=== PATIENT | female | born 1950 | race Caucasian/White ===

== ENCOUNTER → 2017-08-29 12:34 | Outpatient (CLI) | payer MEDICARE, OTHER, SELFPAY ==
--- NOTE | 2017-08-29 | DI.US.S_ITS ---
PROCEDURE: US THYROID INDICATIONS: NONTOXIC MULTINODULAR GOITER TECHNIQUE: Real-time scanning was performed of the thyroid gland, with image documentation. COMPARISON: [facility], US, THYROID, 09/08/2016, 9:06. FINDINGS: Right: The right thyroid lobe measures 1.4 x 1.9 x 5.5 cm, not significantly changed from the comparison prior study in September of last year. The right thyroid lobe superiorly shows a 5 x 5 by 8mm nodule without change and at the middle third of the right thyroid lobe laterally there is a 5 x 6 by 8mm nodule also not changed in volume. At the medial middle third of the right thyroid lobe a 6 x 6 x 6 mm nodule is present in at the inferior third 85 x 4 x 5 mm nodule also has not increased in size over time. Left: The left thyroid lobe measures 0.9 x 1.0 x 2.9 cm, also not changed from prior study. The left thyroid lobe contains a superior nodule measuring 4 x 4 by 5 mm. It has not appreciably enlarged. Isthmus: The isthmus measures up to 2 mm in thickness. IMPRESSION: No significant change in small bilateral thyroid nodules with reference to the prior study from September. Dictated by: Yury Shepherd M.D. on 08/29/2017 at 17:06 Approved by: Yury Shepherd M.D. on 08/29/2017 at 17:08
== END ==
PROVIDERS: PCP Physician Assistant; Visit Provider Internal Medicine
DX: E04.2 Nontoxic multinodular goiter (principal)
CPT/HCPCS: 76536

== ENCOUNTER → 2018-01-11 10:20 | Outpatient (CLI) | payer MEDICARE, OTHER, SELFPAY ==
--- NOTE | 2018-01-11 | DI.RAD.S_ITS ---
PROCEDURE: XR RIBS RT MIN 3V W CXR 1V INDICATIONS: CHEST PAIN ON BREATHING TECHNIQUE: 2 views of the right ribs were acquired, along with a single view chest. COMPARISON: [facility], , RIBS BILATERAL MIN 3 VIEWS, 01/06/2011, 9:56. [facility], , CHEST 2 VIEW, 12/14/2015, 15:38. FINDINGS: Surgical changes and devices: Cholecystectomy clips are seen. Bones and chest wall: A marker is placed upon the area of clinical concern. Within this region, no displaced rib fracture or other significant rib abnormality can be seen. No rib fractures are seen elsewhere. Age-appropriate bony degenerative changes are seen. No suspicious bony lesions. Overlying soft tissues appear unremarkable. Lungs and pleura: No pleural effusions or pneumothorax. Lungs appear clear, yet prominently hyperexpanded. Mediastinum: Mediastinal contours appear normal. Heart size is normal. IMPRESSION: Degenerative changes, without focal rib abnormalities. Hyperexpanded lungs. Cholecystectomy. Dictated by: Anshu Pacheco M.D. on 01/11/2018 at 11:20 Approved by: Anshu Pacheco M.D. on 01/11/2018 at 11:21
== END ==
PROVIDERS: PCP Physician Assistant; Visit Provider Physician Assistant
DX: R07.1 Chest pain on breathing (principal); Z90.49 Acquired absence of other specified parts of digestive tract
CPT/HCPCS: 71101

== ENCOUNTER → 2018-03-21 12:57 | Outpatient (CLI) | payer MEDICARE, OTHER, SELFPAY ==
--- NOTE | 2018-03-21 | DI.RAD.S_ITS ---
This blank DEXA report has been sent in error by the PACS system. The correct and complete report will be forthcoming in 1-2 days. Thank you for your patience and understanding. Dictated by: Momo Roberts M.D. on 03/21/2018 at 15:14 Approved by: Momo Roberts M.D. on 03/21/2018 at 15:17
== END ==
PROVIDERS: PCP Physician Assistant; Visit Provider Physician Assistant
DX: M81.0 Age-related osteoporosis without current pathological fracture (principal); Z78.0 Asymptomatic menopausal state; Z82.62 Family history of osteoporosis; Z90.722 Acquired absence of ovaries, bilateral
CPT/HCPCS: 77080

== ENCOUNTER → 2018-05-08 09:45 | Outpatient (CLI) | payer MEDICARE, OTHER, SELFPAY ==
--- NOTE | 2018-05-08 | DI.MG.S_ITS ---
BILATERAL DIGITAL SCREENING MAMMOGRAM 3D/2D WITH CAD: 05/08/2018 CLINICAL: Routine screening. Comparison is made to exams dated: 04/27/2017 mammogram, 04/06/2016 mammogram, and 03/31/2015 mammogram - [facility]. The tissue of both breasts is heterogeneously dense. This may lower the sensitivity of mammography. Current study was also evaluated with a Computer Aided Detection (CAD) system. No significant masses, calcifications, or other findings are seen in either breast. There has been no significant interval change. IMPRESSION: NEGATIVE There is no mammographic evidence of malignancy. A 1 year screening mammogram is recommended. This exam was interpreted at Station ID: [id number]. NOTE: For mammograms, a report in lay terms will be sent to the patient. Approximately 15% of breast malignancies will not be visualized mammographically. In the management of a palpable breast mass, a negative mammogram must not discourage biopsy of a clinically suspicious lesion. Electronically Signed By: Denise brice/graham:05/08/2018 11:05:17 letter sent: Normal Exam ACR BI-RADS Category 1: Negative [id number]
== END ==
PROVIDERS: PCP Physician Assistant; Visit Provider Physician Assistant
DX: Z12.31 Encounter for screening mammogram for malignant neoplasm of breast (principal)
CPT/HCPCS: 77063; 77067

== ENCOUNTER → 2018-08-30 12:15 | Outpatient (CLI) | payer MEDICARE, OTHER, SELFPAY ==
--- NOTE | 2018-08-30 | DI.US.S_ITS ---
PROCEDURE: US ARTERIAL DUPLEX LE BI INDICATIONS: PAIN IN LOWER LEGS TECHNIQUE: Color and pulse Doppler interrogation was performed of both lower extremity arterial systems, with image documentation. COMPARISON: None. FINDINGS: Right lower extremity: Common femoral artery: 93 cm/sec, with biphasic flow. Deep femoral artery: 74 cm/sec, with biphasic flow. Proximal superficial femoral artery: 57 cm/sec, with biphasic flow. Mid superficial femoral artery: 57 cm/sec, with biphasic flow. Distal superficial femoral artery: 46 cm/sec, with biphasic flow. Popliteal artery: 52 cm/sec, with biphasic flow. Posterior tibial artery: 41 cm/sec, with biphasic flow. Anterior tibial artery/dorsalis pedis: 48 cm/sec, with biphasic flow. Silveira-scale imaging description: No focal arterial stenosis. No significant calcification. Left lower extremity: Common femoral artery: 69 cm/sec, with biphasic flow. Deep femoral artery: 50 cm/sec, with biphasic flow. Proximal superficial femoral artery: 63 cm/sec, with biphasic flow. Mid superficial femoral artery: 69 cm/sec, with biphasic flow. Distal superficial femoral artery: 65 cm/sec, with biphasic flow. Popliteal artery: 46 cm/sec, with biphasic flow. Posterior tibial artery: 54 cm/sec, with biphasic flow. Anterior tibial artery/dorsalis pedis: 59 cm/sec, with biphasic flow. Silveira-scale imaging description: No focal arterial stenosis or significant calcific plaque. IMPRESSION: 1. No hemodynamically significant arterial stenosis in either lower extremity. Dictated by: Cassie Glez M.D. on 08/30/2018 at 17:01 Approved by: Cassie Glez M.D. on 08/30/2018 at 17:05
--- NOTE | 2018-08-30 | DI.US.S_ITS ---
PROCEDURE: US THYROID INDICATIONS: NONTOXIC MULTINODULAR GOITER TECHNIQUE: Real-time scanning was performed of the thyroid gland, with image documentation. COMPARISON: [facility], US, US THYROID, 08/29/2017, 13:08. FINDINGS: Right: Thyroid lobe measures 5.1 x 1.7 x 1.5 cm, and is mildly heterogeneous in echotexture. Left: Thyroid lobe measures 2.6 x 0.8 x 0.9 cm, and is homogeneous in echotexture. Isthmus: 2 mm thick. Nodule number: 1 Location: Right superior Size: 0.6 x 0.4 x 0.5 cm. previously 0.8 x 0.5 x 0.5 Composition: Solid Echogenicity: Hypoechoic Shape: wider than tall. Margins: Smooth Echogenic foci: Macrocalcifications Total points: 5 ACR TI-RADS category: 4 Nodule number: 2 Location: Right mid/lateral Size: 0.7 x 0.5 x 0.7 cm. previously 0.6 x 0.5 x 0.8 Composition: Solid Echogenicity: Mainly isoechoic Shape: wider than tall. Margins: Smooth Echogenic foci: Punctate Total points: 6 ACR TI-RADS category: 4 Nodule number: 3 Location: Right mid to medial Size: 7 x 0.6 x 0.7 cm. previously 0.6 x 0.6 x 0.6 Composition: Predominately solid with a few tiny cystic components Echogenicity: Minimally hypoechoic Shape: wider than tall. Margins: Smooth Echogenic foci: Punctate Total points: 7 ACR TI-RADS category: 5 Nodule number: 4 Location: Right mid inferior Size: 0.4 x 0.3 x 0.4 cm. previously 0.5 x 0.4 x 0.5 Composition: Predominately solid Echogenicity: Minimally hypoechoic Shape: wider than tall. Margins: Smooth Echogenic foci: Punctate Total points: 7 ACR TI-RADS category: 5 There is a left thyroid nodule which measures 5 mm, no change compared to the prior study. IMPRESSION: 1. Multiple subcentimeter thyroid nodules are stable in size and morphology compared to the prior study. 2. Continued annual followup recommended. ACR TI-RADS definitions and recommendations: TI-RADS 1 (benign): 0 points. FNA not needed. TI-RADS 2 (not suspicious): 2 points. FNA not needed. TI-RADS 3 (mildly suspicious): 3 points. * FNA if 2.5 cm or larger, follow up if 1.5 cm or larger (at 1, 3, and 5 years). TI-RADS 4 (moderately suspicious): 4-6 points. * FNA if 1.5 cm or larger, follow up if 1 cm or larger (at 1, 2, 3, and 5 years). TI-RADS 5 (highly suspicious): 7 points or more. * FNA if 1 cm or larger, follow up if 0.5 cm or larger (every year for 5 years). Dictated by: Cassie Glez M.D. on 08/30/2018 at 16:36 Approved by: Cassie Glez M.D. on 08/30/2018 at 16:45
== END ==
PROVIDERS: PCP Internal Medicine; Visit Provider Internal Medicine
DX: E04.2 Nontoxic multinodular goiter (principal); M79.662 Pain in left lower leg; M79.661 Pain in right lower leg
CPT/HCPCS: 76536; 93925

== ENCOUNTER → 2018-09-11 07:52 | Outpatient (CLI) | payer MEDICARE, OTHER, SELFPAY ==
[2018-09-11 09:45] LABS: BUN Creatinine Ratio 22.2 (6-22); Blood Urea Nitrogen 20 mg/dL (7-17); Calcium 9.6 mg/dL (8.4-10.2); Carbon Dioxide 29 mmol/L (22-32); Chloride 102 mmol/L (98-107); Estimated Glomerular Filt Rate > 60.0 mL/min (>60); Glucose 92 mg/dL (80-110); HEMOLYSIS < 15 (0-50); Potassium 4.8 mmol/L (3.4-5.1); Sodium 138 mmol/L (137-145)
[2018-09-14 10:14] LABS: Aldosterone/Renin Activity Rat 136.4 Ratio (0.9-28.9); Plama Renin, LC/MS/MS 0.11 ng/mL/h (0.25-5.82)
== END ==
PROVIDERS: PCP Internal Medicine; Visit Provider Internal Medicine
DX: I10 Essential (primary) hypertension (principal)
CPT/HCPCS: 36415; 80048; 82088; 84244

== ENCOUNTER → 2018-10-08 10:06 | Outpatient (CLI) | payer MEDICARE, OTHER, SELFPAY ==
[2018-10-08 11:50] LABS: B Type Natriuretic Peptide 106 (<100)
== END ==
PROVIDERS: PCP Internal Medicine; Visit Provider Internal Medicine
DX: I10 Essential (primary) hypertension (principal); R60.9 Edema, unspecified; R06.00 Dyspnea, unspecified
CPT/HCPCS: 36415; 83880

== ENCOUNTER → 2018-11-28 09:56 | Outpatient (CLI) | payer MEDICARE, OTHER, SELFPAY ==
--- NOTE | 2018-11-28 | DI.RAD.S_ITS ---
PROCEDURE: XR CHEST 2V INDICATIONS: Chest pain, unspecified TECHNIQUE: 2 views of the chest were acquired. COMPARISON: [facility], CHEST 2 VIEW, 12/14/2015, 15:38. [facility], CHEST 2 VIEW, 12/18/2011, 15:17. FINDINGS: Surgical changes and devices: None. Lungs and pleura: Lungs are abnormal with marked pulmonary hyperexpansion consistent with COPD. No pneumonia or neoplasm is found.. No pleural effusions or pneumothorax. Mediastinum: Mediastinal contours are normal. Heart size is normal. Bones and chest wall: No suspicious bony abnormalities. Soft tissues appear unremarkable. IMPRESSION: Large lung volumes, COPD is presumed. No pneumonia or neoplasm suspected. Dictated by: Yury Shepherd M.D. on 11/28/2018 at 11:47 Approved by: Yury Shepherd M.D. on 11/28/2018 at 11:48
[2018-11-28 11:03] LABS: Add Manual Diff / Slide Review NO; Basophils Absolute Auto 0 /uL (0-100); Basophils Percent Auto 0.6 % (0-2); Eosinophils Absolute Auto 200 /uL (0-450); Eosinophils Percent Auto 4.4 % (2-4); Hematocrit 42.6 % (36-46); Lymphocytes Absolute Auto 1100 /uL (1100-4500); Mean Corpuscular HGB Conc 35.1 % (30-36); Mean Corpuscular Hemoglobin 30.1 PG (26-34); Mean Corpuscular Volume 85.5 fL (80-100); Monocytes Absolute Auto 400 /uL (0-900); Monocytes Percent Auto 7.3 % (3-14); Neutrophils Absolute Auto 3200 /uL (1500-7000); Neutrophils Percent Auto 65.7 % (50-75); Platelet Count 242 X10^3/uL (150-400); Red Blood Cell Count 4.98 X10^6/uL (4.0-5.2); White Blood Cell Count 4.9 X10^3/uL (4.5-11.0)
[2018-11-28 11:27] LABS: B Type Natriuretic Peptide 127 (<100)
[2018-11-28 11:29] LABS: Alanine Aminotransferase 10 IU/L (9-52); Albumin 3.7 g/dL (3.5-5.0); Albumin Globulin Ratio 1.4 (1.0-2.8); Alkaline Phosphatase 64 U/L (38-126); Aspartate Aminotransferase 18 IU/L (14-36); BUN Creatinine Ratio 21.3 (6-22); Bilirubin Total 0.5 mg/dL (0.2-1.3); Blood Urea Nitrogen 17 mg/dL (7-17); Carbon Dioxide 30 mmol/L (22-32); Chloride 104 mmol/L (98-107); Creatine Kinase 36 U/L (30-135); Estimated Glomerular Filt Rate > 60.0 mL/min (>60); Globulin 2.6 g/dL (1.7-4.1); Glucose 55 mg/dL (80-110); HEMOLYSIS < 15 (0-50); Potassium 5.2 mmol/L (3.4-5.1); Sodium 140 mmol/L (137-145); Total Protein 6.3 g/dL (6.3-8.2)
[2018-11-28 11:34] LABS: C-Reactive Protein Quant < 0.5 mg/dL (<1.0)
[2018-11-28 11:38] LABS: Erythrocyte Sedimentation Rate 3 MM/HR (0-20)
[2018-11-28 11:41] LABS: Troponin I < 0.012 ng/mL (0.01-0.034)
== END ==
PROVIDERS: PCP Internal Medicine; Referring Provider Internal Medicine Cardiovascular Disease; Visit Provider Internal Medicine
DX: I31.3 Pericardial effusion (noninflammatory) (principal); R07.9 Chest pain, unspecified; I10 Essential (primary) hypertension
CPT/HCPCS: 36415; 71046; 80053; 82550; 83880; 84484; 85025; 85651; 86038; 86140

== ENCOUNTER → 2019-05-09 10:57 | Outpatient (CLI) | payer MEDICARE, OTHER, SELFPAY ==
--- NOTE | 2019-05-09 | DI.MG.S_ITS ---
BILATERAL DIGITAL SCREENING MAMMOGRAM 3D/2D WITH CAD: 05/09/2019 CLINICAL: Routine screening. Comparison is made to exams dated: 05/08/2018 mammogram, 04/27/2017 mammogram, and 09/22/2016 mammogram - [facility]. The tissue of both breasts is heterogeneously dense. This may lower the sensitivity of mammography. Current study was also evaluated with a Computer Aided Detection (CAD) system. No significant masses, calcifications, or other findings are seen in either breast. There has been no significant interval change. IMPRESSION: NEGATIVE There is no mammographic evidence of malignancy. A 1 year screening mammogram is recommended. This exam was interpreted at Station ID: [id number]. NOTE: For mammograms, a report in lay terms will be sent to the patient. Approximately 15% of breast malignancies will not be visualized mammographically. In the management of a palpable breast mass, a negative mammogram must not discourage biopsy of a clinically suspicious lesion. Electronically Signed By: Rafa donis/graham:05/09/2019 13:02:30 letter sent: Normal Exam ACR BI-RADS Category 1: Negative [id number]
== END ==
PROVIDERS: PCP Internal Medicine; Visit Provider Internal Medicine
DX: Z12.31 Encounter for screening mammogram for malignant neoplasm of breast (principal)
CPT/HCPCS: 77063; 77067

== ENCOUNTER → 2019-11-24 21:28 | Outpatient (ROUT) | payer MEDICARE, OTHER, SELFPAY ==
[2019-11-24 22:21] LABS: Alanine Aminotransferase 14 IU/L (<35); Albumin 3.8 g/dL (3.5-5.0); Albumin Globulin Ratio 1.5 (1.0-2.8); Alkaline Phosphatase 63 U/L (38-126); Aspartate Aminotransferase 25 IU/L (14-36); BUN Creatinine Ratio 24.7 (6-22); Bilirubin Total 0.6 mg/dL (0.2-1.3); Blood Urea Nitrogen 20 mg/dL (7-17); Calcium 9.5 mg/dL (8.4-10.2); Carbon Dioxide 28 mmol/L (22-32); Chloride 104 mmol/L (98-107); Estimated Glomerular Filt Rate > 60.0 mL/min (>60); Globulin 2.6 g/dL (1.7-4.1); Glucose 90 mg/dL (80-110); HEMOLYSIS < 15 (0-50); Potassium 3.8 mmol/L (3.4-5.1); Sodium 138 mmol/L (137-145); Total Protein 6.4 g/dL (6.3-8.2)
== END ==
PROVIDERS: PCP Internal Medicine; Visit Provider Internal Medicine
DX: I10 Essential (primary) hypertension (principal)
CPT/HCPCS: 80053

== ENCOUNTER 2020-01-05 17:56 | Emergency (ER) | payer MEDICARE, OTHER, SELFPAY ==
[2020-01-05] VITALS (17 sets, daily range): BP systolic 142–210; BP diastolic 80–123; PULSE 55–80; RESP 16–42; TEMP 36.9; O2SAT 97–100; BMI 18.2
--- NOTE | 2020-01-05 18:31 | PC.NURSE ---
Pt states she takes atenolol and lisinopril for HTN, had SBP in the teens until starting q6 month injection of Prolia for bone density, last injection 1st week of November 2019. Noted higher bp after these injections, states HTN is a side effect of this med. Denies JONES or other sx.
--- NOTE | 2020-01-05 18:36 | ED_ITS ---
HPI - General Adult General Chief complaint: Hypertension Stated complaint: High Blood Pressure Evaluation Time Seen by Provider: 01/05/20 18:10 Source: patient Mode of arrival: Ambulatory Limitations: no limitations History of Present Illness HPI narrative: 69-year-old female with a history of high blood pressure. Currently on medications. Managed by her primary provider. Here for evaluation of high blood pressure. Patient states that she also receives injection of a medicine for her osteoporosis which is known to cause hypertension. Her last injection was within the past couple weeks. She states that since that time her blood pressure has been elevated to the point that her primary doctor recently doubled her blood pressure medications. She has been taking them as directed. She states that she takes her blood pressure 3 times day. Several months ago her systolic blood pressures were in the 110's but since that time have been steadily rising to the 120s and most recently has been in the 140s to 150 range. She states that earlier today she was having a pressure in her head. She states this is not unusual when she has elevated blood pressures. She took her blood pressure at home and it was in the 160s/170s range. Right after she took her blood pressure she started having left-sided chest discomfort. This started at approximately 0300 hours this afternoon. At the time of my evaluation she was not having any chest discomfort. She states that went away when she got back to the exam room. She is still having slight pressure in her head. Related Data Home Medications Medication Instructions Recorded Confirmed acetaminophen [Acephen] #0 10/06/16 lisinopril 20 mg PO QDAY #0 10/06/16 naproxen sodium [Aleve] #0 10/06/16 Previous Rx's Medication Instructions Recorded amoxicillin 500 mg PO Q8H 5 Days #0 cap 10/06/16 phenazopyridine [Pyridium] 200 mg PO TID PRN #6 tab 10/06/16 Allergies Allergy/AdvReac Type Severity Reaction Status Date / Time No Known Allergies Allergy Uncoded 07/18/17 13:09 Review of Systems Constitutional Constitutional: Denies fatigue and Denies fever(s) Comments: Pressure in her head Eyes Eyes: Denies change in vision and Denies diplopia ENT Ears, Nose, Mouth, and Throat: Denies vertigo and Denies dizziness Cardiovascular Cardiovascular: Denies dyspnea Comments: Chest pressure Respiratory Respiratory: Denies dyspnea Gastrointestinal Gastrointestinal: Denies abdominal pain, Denies nausea and Denies vomiting Genitourinary Genitourinary: Denies dysuria Genitourinary: Denies dysuria Musculoskeletal Musculoskeletal: Denies arthralgias and Denies myalgias Integumentary/Breasts Skin/Breast: Denies lesions and Denies rash Neurologic Neurologic: Denies behavioral changes, Denies vertigo and Denies dizziness Psychiatric Psychiatric: Denies anxiety and Denies behavioral changes Endocrine Endocrine: Denies fatigue Hematologic/Lymphatic Hematologic/Lymphatic: Denies easy bleeding and Denies easy bruising Allergic/Immunologic Allergic/Immunologic: Denies urticaria Patient History Medical History Hypertension (Acute) Osteoporosis (Acute) Social History Smoking Status: Never smoker Smoking Status: Never smoker alcohol intake frequency: 0-2 drinks per day Substance Use Type: does not use Exam Initial Vital Signs Initial Vital Signs: Vital Signs Pulse Rate 77 01/05/20 18:18 Pulse Oximetry 99 01/05/20 18:18 Const General: cooperative and comfortable Limitations: mental status not altered HENRI Head: normal to inspection and normocephalic Eyes General: appearance normal, both eyes and all related structures Resp Effort & Inspection: normal respiratory effort Auscultation: clear to auscultation bilaterally Cardio Rate: regular rate Rhythm: regular rhythm GI Inspection: non-distended Palpation: soft Skin Lesions: no lesions Rashes: no rashes Neuro General: patient alert and patient awake Cognition: normal cognition Speech: speech normal Extrem General: normal to inspection and capillary refill normal Psych Appearance: grossly normal and well kempt Scores GCS [place] coma scale eye opening: Spontaneous [place] coma scale verbal response: Orientated Keith coma scale motor response: Obey commands Keith coma scale total score: 15 Course Orders Ordered: ED Orders 01/05/20 18:18 EKG-12 Lead Stat 01/05/20 18:42 Complete Blood Count AUTO DIFF Stat Comprehensive Metabolic Panel Stat Lipase Stat NT-proBNP (BNP-Adult 18+) Stat Partial Thromboplastin Time Stat Prothrombin Time INR Stat Troponin & CK Cardiac Panel Stat 01/05/20 21:00 Troponin I Stat Discontinued Medications Hydralazine HCl (Apresoline) 10 mg IV Q6HR PRN PRN Reason: Hypertension Vital Signs Vital signs: Vital Signs - 8 hr 01/05/20 18:18 01/05/20 18:19 01/05/20 18:25 Temperature 98.5 F Pulse Rate 77 80 78 Respiratory Rate 16 Blood Pressure 205/123 H 206/90 H Pulse Oximetry 99 99 99 01/05/20 18:30 01/05/20 18:45 01/05/20 19:00 Temperature Pulse Rate 77 67 62 Respiratory Rate 28 H 35 H 35 H Blood Pressure 210/101 H 163/95 H 153/91 H Pulse Oximetry 99 98 97 01/05/20 19:14 01/05/20 19:15 01/05/20 19:30 Temperature Pulse Rate 63 60 65 Respiratory Rate 25 H 21 33 H Blood Pressure 148/86 H 160/83 H 157/86 H Pulse Oximetry 98 99 100 01/05/20 19:45 01/05/20 20:00 01/05/20 20:15 Temperature Pulse Rate 63 57 L 57 L Respiratory Rate 26 H 22 36 H Blood Pressure 161/90 H 158/84 H 145/85 H Pulse Oximetry 99 99 99 01/05/20 20:30 01/05/20 20:45 01/05/20 21:00 Temperature Pulse Rate 55 L 55 L 55 L Respiratory Rate 42 H 32 H 29 H Blood Pressure 142/80 H 143/86 H 173/85 H Pulse Oximetry 100 99 100 01/05/20 21:15 01/05/20 21:30 Temperature Pulse Rate 58 L 55 L Respiratory Rate 28 H 38 H Blood Pressure 162/85 H 152/86 H Pulse Oximetry 100 99 Medical Decision Making Lab Data Lab results reviewed: Yes I reviewed the patient's lab results. Result diagrams: 01/05/20 18:42 01/05/20 18:42 Labs: Lab Results 01/05/20 01/05/20 01/05/20 Range/Units 18:42 18:42 18:42 WBC 6.7 (4.5-11.0) X10^3/uL RBC 4.91 (4.0-5.2) X10^6/uL Hgb 14.6 (12.0-16.0) g/dL Hct 41.6 (36-46) % MCV 84.8 (80-100) fL MCH 29.8 (26-34) PG MCHC 35.2 (30-36) % RDW 14.2 (11.6-14.8) % Plt Count 243 (150-400) X10^3/uL Neut % (Auto) 73.5 (50-75) % Lymph % (Auto) 16.7 L (25-40) % Bowman % (Auto) 6.3 (3-14) % Eos % (Auto) 3.1 (2-4) % Baso % (Auto) 0.4 (0-2) % Neut # (Auto) 4900 (0057-5008) /uL Lymph # (Auto) 1100 (2694-0585) /uL Bowman # (Auto) 400 (0-900) /uL Eos # (Auto) 200 (0-450) /uL Baso # (Auto) 0 (0-100) /uL PT 11.4 (10.1-12.7) SECONDS INR 1.0 (0.9-1.3) APTT 45 H (26.4-36.2) SECONDS Sodium 140 (137-145) mmol/L Potassium 3.6 (3.4-5.1) mmol/L Chloride 103 (98-107) mmol/L Carbon Dioxide 29 (22-32) mmol/L BUN 18 H (7-17) mg/dL Creatinine 0.76 (0.52-1.04) mg/dL Estimated GFR > 60.0 (>60) mL/min BUN/Creatinine Ratio 23.7 H (6-22) Glucose 122 H (80-110) mg/dL Calcium 9.4 (8.4-10.2) mg/dL Total Bilirubin 0.8 (0.2-1.3) mg/dL AST 22 (14-36) IU/L ALT 17 (<35) IU/L Alkaline Phosphatase 58 (38-126) U/L Total Creatine Kinase 42 (30-135) U/L CK-MB (CK-2) TNP CK-MB (CK-2) Rel Index TNP Troponin I < 0.012 (0.01-0.034) ng/mL NT-Pro-B Natriuret Pep 234 H (<125) pg/mL Total Protein 7.0 (6.3-8.2) g/dL Albumin 4.0 (3.5-5.0) g/dL Globulin 3.0 (1.7-4.1) g/dL Albumin/Globulin Ratio 1.3 (1.0-2.8) Lipase 89 (23-300) U/L 01/05/20 Range/Units 21:00 WBC (4.5-11.0) X10^3/uL RBC (4.0-5.2) X10^6/uL Hgb (12.0-16.0) g/dL Hct (36-46) % MCV (80-100) fL MCH (26-34) PG MCHC (30-36) % RDW (11.6-14.8) % Plt Count (150-400) X10^3/uL Neut % (Auto) (50-75) % Lymph % (Auto) (25-40) % Bowman % (Auto) (3-14) % Eos % (Auto) (2-4) % Baso % (Auto) (0-2) % Neut # (Auto) (7150-5469) /uL Lymph # (Auto) (7879-1241) /uL Bowman # (Auto) (0-900) /uL Eos # (Auto) (0-450) /uL Baso # (Auto) (0-100) /uL PT (10.1-12.7) SECONDS INR (0.9-1.3) APTT (26.4-36.2) SECONDS Sodium (137-145) mmol/L Potassium (3.4-5.1) mmol/L Chloride (98-107) mmol/L Carbon Dioxide (22-32) mmol/L BUN (7-17) mg/dL Creatinine (0.52-1.04) mg/dL Estimated GFR (>60) mL/min BUN/Creatinine Ratio (6-22) Glucose (80-110) mg/dL Calcium (8.4-10.2) mg/dL Total Bilirubin (0.2-1.3) mg/dL AST (14-36) IU/L ALT (<35) IU/L Alkaline Phosphatase (38-126) U/L Total Creatine Kinase (30-135) U/L CK-MB (CK-2) CK-MB (CK-2) Rel Index Troponin I < 0.012 (0.01-0.034) ng/mL NT-Pro-B Natriuret Pep (<125) pg/mL Total Protein (6.3-8.2) g/dL Albumin (3.5-5.0) g/dL Globulin (1.7-4.1) g/dL Albumin/Globulin Ratio (1.0-2.8) Lipase (23-300) U/L ECG Data Attestation: I personally reviewed and interpreted this ECG as follows: Prior ECG tracings: not available for review Interpretation: Sinus rhythm Ventricular rate is 77 LVH Normal QRS Normal QTC Nonspecific ST T wave changes MDM Narrative Medical decision making narrative: Patient's blood pressure improved without intervention here in the ER. Hydralazine was ordered however her blood pressure improved before this medication was administered. Troponins negative x2. Nonfocal neurologic exam. Low suspicion for intracerebral hemorrhage, low marie picion for ACS, no signs of pulmonary edema. I feel we can hold on further workup for now. When patient follow-up with her primary provider. We did discuss taking her blood pressure at home. She expressed understanding and agreement. Discharge Plan Departure Patient Disposition: Home Clinical Impression: Hypertension Discharge Date/Time: 01/05/20 21:56 Instructions: DI for High Blood Pressure Activity Restrictions/Additional Instructions: Recommend you continue all of your medications as directed. Tomorrow contact your primary provider for follow-up. Return to the emergency department for any new or worsening symptoms Prescriptions: No Action acetaminophen [Acephen] 325 MG suppository Qty: 0 RF: 0 lisinopril 20 MG tablet 20 mg PO QDAY Qty: 0 RF: 0 naproxen sodium [Aleve] 220 MG tablet Qty: 0 RF: 0 amoxicillin 500 MG capsule 500 mg PO Q8H 5 Days Qty: 0 RF: 0 phenazopyridine [Pyridium] 200 MG tablet 200 mg PO TID PRNQty: 6 RF: 0 Referrals: Mame Mariano MD [Primary Care Provider] -
[2020-01-05 18:49] LABS: Add Manual Diff / Slide Review NO; Basophils Absolute Auto 0 /uL (0-100); Basophils Percent Auto 0.4 % (0-2); Eosinophils Absolute Auto 200 /uL (0-450); Eosinophils Percent Auto 3.1 % (2-4); Hematocrit 41.6 % (36-46); Hemoglobin 14.6 g/dL (12.0-16.0); Lymphocytes Absolute Auto 1100 /uL (1100-4500); Lymphocytes Percent Auto 16.7 % (25-40); Mean Corpuscular HGB Conc 35.2 % (30-36); Mean Corpuscular Hemoglobin 29.8 PG (26-34); Mean Corpuscular Volume 84.8 fL (80-100); Monocytes Absolute Auto 400 /uL (0-900); Monocytes Percent Auto 6.3 % (3-14); Neutrophils Absolute Auto 4900 /uL (1500-7000); Neutrophils Percent Auto 73.5 % (50-75); Platelet Count 243 X10^3/uL (150-400); Red Blood Cell Count 4.91 X10^6/uL (4.0-5.2); Red Cell Distribution Width 14.2 % (11.6-14.8); White Blood Cell Count 6.7 X10^3/uL (4.5-11.0)
[2020-01-05 18:57] LABS: Prothrombin Time 11.4 SECONDS (10.1-12.7)
[2020-01-05 19:00] LABS: PTT Partial Thromboplastin Tim 45 SECONDS (26.4-36.2)
[2020-01-05 19:01] LABS: Alanine Aminotransferase 17 IU/L (<35); Albumin Globulin Ratio 1.3 (1.0-2.8); Alkaline Phosphatase 58 U/L (38-126); Aspartate Aminotransferase 22 IU/L (14-36); BUN Creatinine Ratio 23.7 (6-22); Bilirubin Total 0.8 mg/dL (0.2-1.3); Blood Urea Nitrogen 18 mg/dL (7-17); Calcium 9.4 mg/dL (8.4-10.2); Carbon Dioxide 29 mmol/L (22-32); Chloride 103 mmol/L (98-107); Creatine Kinase 42 U/L (30-135); Estimated Glomerular Filt Rate > 60.0 mL/min (>60); Glucose 122 mg/dL (80-110); HEMOLYSIS < 15 (0-50); Lipase 89 U/L (23-300); Potassium 3.6 mmol/L (3.4-5.1); Sodium 140 mmol/L (137-145)
[2020-01-05 19:13] LABS: NT-proBNP (BNP-Adult 18+) 234 pg/mL (<125); Troponin I < 0.012 ng/mL (0.01-0.034)
[2020-01-05 21:32] LABS: Troponin I < 0.012 ng/mL (0.01-0.034)
== END 2020-01-05 21:56 | disposition home or self-care (01) ==
PROVIDERS: Emergency Provider Emergency Medicine; PCP Internal Medicine
DX: I10 Essential (primary) hypertension (principal)
CPT/HCPCS: 36415; 80053; 82550; 83690; 83880; 84484; 85025; 85610; 85730; 93005; 99283; 99284

== ENCOUNTER → 2020-02-26 07:58 | Outpatient (CLI) | payer MEDICARE, OTHER, SELFPAY ==
--- NOTE | 2020-02-26 | DI.US.S_ITS ---
PROCEDURE: US THYROID INDICATIONS: NONTOXIC MULTINODULAR GOITER TECHNIQUE: Real-time scanning was performed of the thyroid gland, with image documentation. COMPARISON: [facility], US, US THYROID, 08/30/2018, 12:36. FINDINGS: Right: Thyroid lobe measures 5.8 x 1.6 x 1.7 cm, and is diffusely heterogeneous in echotexture. Left: Thyroid lobe measures 3.5 x 1.0 x 0.8 cm, and is diffusely heterogeneous in echotexture. Isthmus: 2.6 mm thick. Nodule number: 1 Location: Right superior Size: Unchanged 0.7 x 0.5 x 0.4 cm. Composition: Solid Echogenicity: Hypoechoic Shape: wider than tall. Margins: Smooth Echogenic foci: Internal punctate echogenic foci Total points: 7 ACR TI-RADS category: Highly suspicious Nodule number: 2 Location: Right mid Size: Unchanged 0.8 x 0.5 x 0.5 cm. Composition: Predominantly solid Echogenicity: Predominantly isoechoic Shape: wider than tall. Margins: Smooth Echogenic foci: Internal punctate echogenic foci Total points: 6 ACR TI-RADS category: Moderately suspicious Nodule number: 3 Location: Right mid Size: Unchanged 0.7 x 0.7 x 0.6 cm. Composition: Predominantly solid Echogenicity: Hypoechoic Shape: wider than tall. Margins: Smooth Echogenic foci: None Total points: 4 ACR TI-RADS category: Moderately suspicious Nodule number: 4 Location: Right inferior Size: Unchanged 0.5 x 0.5 x 0.4 cm. Composition: Predominantly solid Echogenicity: Hypoechoic Shape: wider than tall. Margins: Smooth Echogenic foci: None Total points: 4 ACR TI-RADS category: Moderately suspicious Nodule number: 5 Location: Left mid Size: Unchanged 0.5 x 0.4 x 0.4 cm. Composition: Predominantly cystic Echogenicity: Hypoechoic Shape: wider than tall. Margins: Smooth Echogenic foci: None Total points: 2 ACR TI-RADS category: Not suspicious IMPRESSION: Stable appearance of bilateral thyroid nodules. Continued follow-up recommended for a subcentimeter nodule within the right superior thyroid lobe. ACR TI-RADS definitions and recommendations: TI-RADS 1 (benign): 0 points. FNA not needed. TI-RADS 2 (not suspicious): 2 points. FNA not needed. TI-RADS 3 (mildly suspicious): 3 points. * FNA if 2.5 cm or larger, follow up if 1.5 cm or larger (at 1, 3, and 5 years). TI-RADS 4 (moderately suspicious): 4-6 points. * FNA if 1.5 cm or larger, follow up if 1 cm or larger (at 1, 2, 3, and 5 years). TI-RADS 5 (highly suspicious): 7 points or more. * FNA if 1 cm or larger, follow up if 0.5 cm or larger (every year for 5 years). Dictated by: Cecil Carty [facility] Interpreted: Denise Malcolm MD on 02/26/2020 at 13:42 Approved by: Denise Malcolm M.D. on 02/26/2020 at 15:38
[2020-02-26 10:35] LABS: Cholesterol 181 mg/dL (140-199); HDL Cholesterol 66 mg/dL (40-60); LDL Cholesterol Calculated 100 mg/dL (<100); Triglycerides 74 mg/dL (35-150)
== END ==
PROVIDERS: PCP Internal Medicine; Referring Provider Internal Medicine; Visit Provider Internal Medicine
DX: E04.2 Nontoxic multinodular goiter (principal); I10 Essential (primary) hypertension
CPT/HCPCS: 36415; 76536; 80061

== ENCOUNTER → 2020-03-25 12:32 | Outpatient (CLI) | payer MEDICARE, OTHER, SELFPAY | PROVIDERS: PCP Internal Medicine; Referring Provider Internal Medicine; Visit Provider Internal Medicine | DX: M81.0 Age-related osteoporosis without current pathological fracture; Z78.0 Asymptomatic menopausal state; Z90.722 Acquired absence of ovaries, bilateral; Z82.62 Family history of osteoporosis | CPT/HCPCS: 77080 ==

== ENCOUNTER → 2020-05-14 14:16 | Outpatient (CLI) | payer MEDICARE, OTHER, SELFPAY ==
--- NOTE | 2020-05-14 | DI.MG.S_ITS ---
BILATERAL DIGITAL SCREENING MAMMOGRAM 3D/2D WITH CAD: 05/14/2020 CLINICAL: Routine screening. Comparison is made to exams dated: 05/09/2019 mammogram, 05/08/2018 mammogram, and 04/27/2017 mammogram - [facility]. The tissue of both breasts is heterogeneously dense. This may lower the sensitivity of mammography. Current study was also evaluated with a Computer Aided Detection (CAD) system. No significant masses, calcifications, or other findings are seen in either breast. There has been no significant interval change. IMPRESSION: NEGATIVE There is no mammographic evidence of malignancy. A 1 year screening mammogram is recommended. This exam was interpreted at Station ID: [id number]. NOTE: For mammograms, a report in lay terms will be sent to the patient. Approximately 15% of breast malignancies will not be visualized mammographically. In the management of a palpable breast mass, a negative mammogram must not discourage biopsy of a clinically suspicious lesion. Electronically Signed By: Prakash ro/graham:05/14/2020 16:33:19 letter sent: Normal Exam ACR BI-RADS Category 1: Negative 3341F
== END ==
PROVIDERS: PCP Internal Medicine; Referring Provider Internal Medicine; Visit Provider Internal Medicine
DX: Z12.31 Encounter for screening mammogram for malignant neoplasm of breast (principal)
CPT/HCPCS: 77063; 77067

== ENCOUNTER → 2020-06-17 08:27 | Outpatient (CLI) | payer MEDICARE, OTHER, SELFPAY ==
[2020-06-21 22:35] LABS: Creatinine, Random Urine 106.5 mg/dL (Not Estab.); Metaneph/ Creatinine Ratio 0.4 (0.0-1.0); Metanephrine, Ur 120 ug/L (Undefined); Normetanephrine, Urine 225 ug/L (Undefined)
[2020-06-21 23:42] LABS: Metanephrine,Plasma 20.8 pg/mL (0.0-88.0)
== END ==
PROVIDERS: PCP Internal Medicine; Referring Provider Internal Medicine; Visit Provider Internal Medicine
DX: I10 Essential (primary) hypertension (principal)
CPT/HCPCS: 36415; 82570; 83835

== ENCOUNTER → 2020-06-19 10:00 | Outpatient (CLI) | payer MEDICARE, OTHER, SELFPAY ==
[2020-06-21 22:35] LABS: Normetanephrine Total 185 ug/24 hr (131-612); Urine, Metanephrine 42 ug/L (Undefined); Urine, Normetanephrine 95 ug/L (Undefined)
== END ==
PROVIDERS: PCP Internal Medicine; Referring Provider Internal Medicine; Visit Provider Internal Medicine
DX: I10 Essential (primary) hypertension (principal)
CPT/HCPCS: 83835

== ENCOUNTER → 2021-05-16 11:35 | Outpatient (CLI) | payer MEDICARE, OTHER, SELFPAY ==
--- NOTE | 2021-05-16 | DI.MG.S_ITS ---
BILATERAL DIGITAL SCREENING MAMMOGRAM 3D/2D WITH CAD: 05/16/2021 CLINICAL: Routine screening. Comparison is made to exams dated: 05/14/2020 mammogram, 05/09/2019 mammogram, and 05/08/2018 mammogram - [facility]. The tissue of both breasts is heterogeneously dense. This may lower the sensitivity of mammography. Current study was also evaluated with a Computer Aided Detection (CAD) system. No significant masses, calcifications, or other findings are seen in either breast. There has been no significant interval change. IMPRESSION: NEGATIVE There is no mammographic evidence of malignancy. A 1 year screening mammogram is recommended. This exam was interpreted at Station ID: [id number]. NOTE: For mammograms, a report in lay terms will be sent to the patient. Approximately 15% of breast malignancies will not be visualized mammographically. In the management of a palpable breast mass, a negative mammogram must not discourage biopsy of a clinically suspicious lesion. Electronically Signed By: Kishore Osorio M.D., jr/graham:05/16/2021 12:13:35 letter sent: Normal Exam ACR BI-RADS Category 1: Negative 3341F
== END ==
PROVIDERS: PCP Internal Medicine; Referring Provider Internal Medicine; Visit Provider Internal Medicine
DX: Z12.31 Encounter for screening mammogram for malignant neoplasm of breast (principal)
CPT/HCPCS: 77063; 77067

== ENCOUNTER 2022-06-05 12:37 | Day surgery (SDC) | payer MEDICARE, OTHER, SELFPAY ==
[2022-06-05] VITALS (7 sets, daily range): BP systolic 77–142; BP diastolic 43–80; PULSE 55–68; RESP 14–20; TEMP 36.6–36.7; O2SAT 96–100; BMI 42.2; BMI 19.1
--- NOTE | 2022-06-05 | PATH_ITS ---
[facility] Accession Number: [id number] No. of containers..01 Tissue . 01 Material submitted: . colon - TRANSVERSE COLON POLYP . 01 Clinical history: . COLONOSCOPY . 01 Diagnosis: Transverse Colon Polyp: Tubular adenoma. MRV 06/08/2022 1235 Local . 01 Electronically signed: . Olvin Hutchison MD, PhD, Pathologist NPI- [id number] . 01 Gross description: . TRANSVERSE COLON POLYP: Received in formalin is 1 fragment(s) of hall, soft tissue measuring 0.2 x 0.1 x 0.1 cm submitted entirely in 1 cassette(s) /CPE 06/06/2022 0924 Local . 01 Pathologist provided ICD-10: D12.3 . 01 CPT . 689434 Specimen Comment: A courtesy copy of this report has been sent to [phone] Performed at: 01 [facility] [address] [place] [address], [place], [place] [id number] MD Rafa Clayton MD Phone: [phone]
--- NOTE | 2022-06-05 13:46 | PM.HP.1 ---
History of Present Illness History of Present Illness Date Patient Seen: 06/05/22 Time Patient Seen: 13:46 Chief complaint: Colonoscopy Narrative: History of prior failed colonoscopy. History of recent positive Cologuard. Patient History Medical History Hypertension Osteoporosis Family & Social History Tobacco & Substance use: Smoking Status Never smoker alcohol intake frequency 0-2 drinks per day Substance Use Type does not use Meds Home Medications and Allergies Home Medications Medication Instructions Recorded Confirmed Type lisinopril 20 mg tablet 10 mg PO QDAY ##0 10/06/16 06/05/22 History amlodipine 5 mg tablet 5 mg PO DAILY 06/05/22 06/05/22 History atenolol 50 mg tablet 50 mg PO DAILY 06/05/22 06/05/22 History rosuvastatin 5 mg sprinkle capsule 5 mg PO DAILY 06/05/22 06/05/22 History Allergies Allergy/AdvReac Type Severity Reaction Status Date / Time No Known Drug Allergies Allergy Verified 06/05/22 13:37 Review of Systems Review of Systems ROS: Yes All systems reviewed with the patient and are negative except as otherwise documented Exam Const General: cooperative HENMT Head: normal to inspection Eyes General: appearance normal, both eyes and all related structures Neck Neck: normal visual inspection Chest Chest: normal inspection of the chest Resp Effort & Inspection: normal respiratory effort Cardio Rate: regular rate GI Inspection: normal to inspection Skin General: no rashes or lesions noted Neuro General: patient alert and patient awake Extrem General: normal to inspection and no pedal edema Psych Appearance: grossly normal Assessment & Plan Assessment & Plan narrative: 72-year-old female with a positive Cologuard. Colonoscopy is pursued today. Time Spent With Patient Critical Care time: I spent a total of [] minutes of critical care time on this patient's care today; this time is exclusive of procedural time.
--- NOTE | 2022-06-05 13:47 | PM.PREOP ---
Pre-operative Note Interval Note History & Physical reviewed/Exam performed by Physician: Yes Changes to H&P: No ASA Class (for procedural sedation): II
[2022-06-05] MEDS: LACTATED RINGERS 1,000 ML 42 ML IV (14:10)
--- NOTE | 2022-06-05 14:57 | PM.OP.COLON ---
Operative Date/Time/Diagnoses Date of procedure: 06/05/22 Time of procedure: 14:58 Pre-op diagnosis: Positive Cologuard Post-op diagnosis: same Procedure & Clinicians Study performed: Colonoscopy with cold forceps polypectomy Same procedure as scheduled: Yes Indications: Positive Cologuard Surgeon: Alphonso Zhang Procedure Notes SCOAP/Timeout: Done Procedure in detail: After the risks and benefits were explained, written and verbal informed consent was obtained. The patient was brought into the procedure room and placed into the left lateral decubitus position. Please see anesthesia notes for sedation details. Digital rectal examination was accomplished. The scope was introduced into the patient and advanced under direct visualization to the cecum as identified by the appendiceal orifice and ileocecal valve. The scope was slowly withdrawn to carefully examine the mucosa for any defects or lesions. Comprehensive imaging was accomplished throughout the rectum including the dentate line. The colon was decompressed, the scope was then removed from the patient who tolerated the procedure well. Pediatric colonoscope Bowel prep adequate Scope withdrawal time: 10 minutes Sedation minutes: 30 Complications: none Impression: The patient had extensive diverticulosis encountered throughout the left colon. This was an extremely tortuous colon. Navigation was very difficult requiring abdominal pressure and supine positioning. There was a diminutive polyp found in the transverse colon removed with cold forceps. No additional mucosal pathology was appreciated throughout. Grade 2 hemorrhoids were noted on direct views. Endoscopic diagnosis 1. Diminutive polyp 2. Tortuous colon 3. Diverticulosis 4. Grade 2 hemorrhoids Post-procedure Plan for aftercare: 1. Await histopathology. 2. Surveillance colonoscopy will not likely be recommended/required. Disposition: PACU
== END 2022-06-05 15:46 | disposition home or self-care (01) ==
PROVIDERS: PCP Internal Medicine; Referring Provider Internal Medicine Gastroenterology; Visit Provider Internal Medicine Gastroenterology
PROC: 0DJD8ZZ Inspection of Lower Intestinal Tract, Via Natural or Artificial Opening Endoscopic (ICD-10-PCS; CPT 45378; principal; 2022-06-05 14:30)
DX: Z12.11 Encounter for screening for malignant neoplasm of colon (principal); R19.5 Other fecal abnormalities; K57.30 Diverticulosis of large intestine without perforation or abscess without bleeding; K64.1 Second degree hemorrhoids; D12.3 Benign neoplasm of transverse colon
CPT/HCPCS: 45380; J2704; J3010

== ENCOUNTER → 2022-06-14 12:34 | Outpatient (CLI) | payer MEDICARE, OTHER, SELFPAY ==
--- NOTE | 2022-06-14 | DI.MG.S_ITS ---
BILATERAL DIGITAL SCREENING MAMMOGRAM 3D/2D WITH CAD: 06/14/2022 CLINICAL: Routine screening. Comparison is made to exams dated: 05/16/2021 mammogram, 05/14/2020 mammogram, 05/09/2019 mammogram, and 05/08/2018 mammogram - [facility]. Both breasts are heterogeneously dense, which may obscure small masses (category c / 51-75% glandular tissue). Current study was also evaluated with a Computer Aided Detection (CAD) system. No significant masses, calcifications, or other findings are seen in either breast. There has been no significant interval change. IMPRESSION: NEGATIVE There is no mammographic evidence of malignancy. A 1 year screening mammogram is recommended. Based on the Tyrer Cuzick model (a risk assessment model) the patient's lifetime risk is 5.9% and her 10 year risk is 5.3%. According to the ACR, ACS, and NCCN guidelines, an annual breast MRI exam along with mammogram is recommended if the patient's lifetime risk is 20% or greater. This exam was interpreted at Station ID: [id number]. NOTE: For mammograms, a report in lay terms will be sent to the patient. Approximately 15% of breast malignancies will not be visualized mammographically. In the management of a palpable breast mass, a negative mammogram must not discourage biopsy of a clinically suspicious lesion. Electronically Signed By: Terry lee/graham:06/14/2022 15:40:29 letter sent: Normal Exam ACR BI-RADS Category 1: Negative 3341F
== END ==
PROVIDERS: PCP Internal Medicine; Referring Provider Internal Medicine; Visit Provider Internal Medicine
DX: Z12.31 Encounter for screening mammogram for malignant neoplasm of breast (principal)
CPT/HCPCS: 77063; 77067

== ENCOUNTER → 2022-06-28 09:51 | Outpatient (CLI) | payer MEDICARE, OTHER, SELFPAY ==
--- NOTE | 2022-06-28 10:00 | DI.DEXA.S_ITS ---
Indication: postmenopausal osteoporosis; Referring Provider: JUDE SHAFER Study: Bone densitometry was performed. Exam Date: June 28, 2022 Accession number: [id number] Bone Density: Region BMD T-score Z-score Classification AP Spine(L1-L4) 0.521 -4.8 -2.4 Osteoporosis Femoral Neck (Left) 0.398 -4.1 -2.0 Osteoporosis Total Hip (Left) 0.489 -3.7 -2.0 Osteoporosis Femoral Neck (Right) 0.390 -4.1 -2.1 Osteoporosis Total Hip (Right) 0.481 -3.8 -2.0 Osteoporosis Total Hip Mean 0.485 -3.8 -2.0 Osteoporosis World Health Organization criteria for BMD impression classify patients as: Normal (T-score at or above -1.0), Osteopenia (T-score between -1.0 and -2.5), or Osteoporosis (T-score at or below -2.5). 10-year Fracture Risk: FRAX not reported because: Some T-score for Spine Total or Hip Total or Femoral Neck at or below -2.5 Previous Exams: -- Region Exam Age BMD T-score BMD Change BMD Change Date g/cm2 vs Baseline vs Previous -- AP Spine (L1-L4) 06/28/2022 72 0.521 -4.8 -0.037 (-6.6%)# -0.037 (-6.6%)# 03/25/2020 70 0.557 -4.5 Total Hip(Left) 06/28/2022 72 0.489 -3.7 -0.027 (-5.2%)# -0.027 (-5.2%)# 03/25/2020 70 0.515 -3.5 Total Hip(Right) 06/28/2022 72 0.481 -3.8 -0.012 (-2.5%)# -0.012 (-2.5%)# 03/25/2020 70 0.493 -3.7 -- *Denotes significance at 95% confidence level, LSC for AP Spine = 0.022 g/cm2, LSC for Total Hip = 0.027 g/cm2 # Denotes dissimilar scan types or analysis methods Impression: The patient has osteoporosis, based on the Total Spine T-score. No significant bone loss was observed. Discussion: HIGH RISK OF FRACTURE. BONE DENSITY IS UNDESIRABLY LOW AT ONE OR MORE SKELETAL SITES, CONSISTENT WITH OSTEOPOROSIS. ALSO, BONE DENSITY IS LOWER THAN EXPECTED FOR AGE AND SEX AT ONE OR MORE SKELETAL SITES; RECOMMEND A DILIGENT SEARCH FOR SECONDARY CAUSES OF BONE LOSS. This patient's lowest T-score meets the World Health Organization's (WHO) criteria for osteoporosis at one or more sites (T-score -2.5 or below). In untreated patients, the risk of osteoporotic fracture increases approximately two-fold for each 1.0 SD decrease in T-score. Low bone density is not the only risk factor for fracture; also consider factors such as patient's age, frailty or poor health, risk of falling, risk of injury, previous osteoporotic fracture, family history of osteoporosis, cigarette smoking, low body weight, etc. Not everyone with low bone mineral density has osteoporosis; osteomalacia and other metabolic bone disorders should also be considered. Patients who have osteoporosis should be evaluated for specific diseases and conditions (secondary causes) that may cause or contribute to bone loss. The [place] [employer] Endocrinologists (AACE) and National Osteoporosis Foundation (NOF) recommend pharmacologic intervention for all postmenopausal women whose T-score is in this range. Also, this patient's bone mineral density is below the range considered normal for healthy age-, sex-, and race-matched controls at least one site (Z-score -2.0 or below). This warrants careful evaluation for diseases and conditions that may contribute to accelerated bone loss. The patient should follow a healthful lifestyle (good nutrition with adequate calcium and vitamin D, and appropriate weight-bearing exercise). Follow-Up: Consider a repeat BMD and Vertebral Fracture Assessment (VFA) exam in 2 years or sooner if medically necessary, to reassess this patient's status. Reported by: ESTEBAN LILLY M.D. on 06/28/2022 10:10:00 AM.
== END ==
PROVIDERS: PCP Internal Medicine; Referring Provider Internal Medicine; Visit Provider Internal Medicine
DX: M81.0 Age-related osteoporosis without current pathological fracture (principal); Z78.0 Asymptomatic menopausal state; Z90.710 Acquired absence of both cervix and uterus; Z79.83 Long term (current) use of bisphosphonates
CPT/HCPCS: 77080

== ENCOUNTER 2023-03-16 11:22 | Emergency (ER) | payer MEDICARE, OTHER, SELFPAY ==
[2023-03-16 11:24] VITALS: BP 109/55; PULSE 94; RESP 14; TEMP 37.8; O2SAT 99; BMI 19.4
[2023-03-16 12:24] LABS: Influenza A - CEPHEID Flu A NEGATIVE (NEGATIVE); Influenza B - CEPHEID Flu B NEGATIVE (NEGATIVE); Respiratory Syncytial Virus Negative (Negative)
[2023-03-16 12:39] LABS: COVID-19 CEPHEID 4-PLEX PCR POSITIVE (Negative)
[2023-03-16 12:58] VITALS: PULSE 79; O2SAT 97
[2023-03-16 13:00] VITALS: BP 106/62; BP 108/64; BP 82/51; BP 90/52; PULSE 78; PULSE 81; PULSE 83; O2SAT 97
[2023-03-16] MEDS: SODIUM CHLORIDE 0.9% 1,000 ML 1000 ML IV (13:01)
[2023-03-16 13:30] VITALS: BP 113/61; PULSE 74; RESP 20; O2SAT 97
[2023-03-16 13:33] LABS: Add Manual Diff / Slide Review NO; Basophils Absolute Auto 0 /uL (0-100); Basophils Percent Auto 0.2 % (0-2); Eosinophils Absolute Auto 0 /uL (0-450); Eosinophils Percent Auto 0.1 % (2-4); Hematocrit 41.5 % (36-46); Hemoglobin 14.7 g/dL (12.0-16.0); Lymphocytes Absolute Auto 100 /uL (1100-4500); Mean Corpuscular HGB Conc 35.5 % (30-36); Mean Corpuscular Hemoglobin 29.7 PG (26-34); Mean Corpuscular Volume 83.5 fL (80-100); Monocytes Absolute Auto 400 /uL (0-900); Monocytes Percent Auto 7.5 % (3-14); Neutrophils Absolute Auto 4800 /uL (1500-7000); Neutrophils Percent Auto 90.2 % (50-75); Platelet Count 201 X10^3/uL (150-400); Red Blood Cell Count 4.97 X10^6/uL (4.0-5.2); Red Cell Distribution Width 13.4 % (11.6-14.8); White Blood Cell Count 5.4 X10^3/uL (4.5-11.0)
[2023-03-16 13:54] LABS: Alanine Aminotransferase 27 IU/L (<35); Albumin 4.1 g/dL (3.5-5.0); Albumin Globulin Ratio 1.4 (1.0-2.8); Alkaline Phosphatase 60 U/L (38-126); Aspartate Aminotransferase 45 IU/L (14-36); BUN Creatinine Ratio 25.3 (6-22); Bilirubin Total 1.1 mg/dL (0.2-1.3); Blood Urea Nitrogen 19 mg/dL (7-17); Calcium 9.1 mg/dL (8.4-10.2); Carbon Dioxide 24 mmol/L (22-32); Chloride 104 mmol/L (98-107); Estimated Glomerular Filt Rate > 60 mL/min (>60); Glucose 119 mg/dL (80-110); HEMOLYSIS < 15 (0-50); Potassium 3.3 mmol/L (3.4-5.1); Sodium 136 mmol/L (137-145); Total Protein 7.1 g/dL (6.3-8.2)
[2023-03-16 13:58] LABS: Lactate (Lactic Acid) 1.1 mmol/L (0.7-2.1)
[2023-03-16 14:00] VITALS: BP 108/55; PULSE 76; RESP 20; O2SAT 97
[2023-03-16 14:11] LABS: Procalcitonin 0.08 ng/mL (<0.5)
--- NOTE | 2023-03-16 14:29 | ED.HA ---
HPI - Headache General Chief Complaint: Headache Stated Complaint: sever abd pain, nausea, headache Time Seen by Provider: 03/16/23 14:29 Mode of arrival: Ambulatory History of Present Illness HPI Narrative: Patient 73-year-old female history of hypertension hyperlipidemia presenting today with headache and fever. She is a she was feeling well yesterday but woke up this morning and just did not feel great. No chest pain or shortness of breath. No neck pain some mild abdominal pain. She tested + for COVID 19. She was brought back vitals for Re taken blood pressure was slightly low. She is blood work and IV fluids and is overall feeling better. Related Data Home Medications Medication Instructions Recorded Confirmed lisinopril 20 mg tablet 10 mg PO QDAY ##0 10/06/16 06/05/22 amlodipine 5 mg tablet 5 mg PO DAILY 06/05/22 06/05/22 atenolol 50 mg tablet 50 mg PO DAILY 06/05/22 06/05/22 rosuvastatin 5 mg sprinkle capsule 5 mg PO DAILY 06/05/22 06/05/22 Allergies Allergy/AdvReac Type Severity Reaction Status Date / Time No Known Drug Allergies Allergy Verified 03/16/23 11:24 Patient History Medical History Osteoporosis Hypertension Social History household members: spouse Smoking Status: Never smoker alcohol intake: never Smoking Status: Never smoker alcohol intake frequency: 0-2 drinks per day Substance Use Type: does not use Exam Initial Vital Signs Initial Vital Signs: Vital Signs Temperature 100.0 F H 03/16/23 11:24 Pulse Rate 94 H 03/16/23 11:24 Respiratory Rate 14 03/16/23 11:24 Blood Pressure 109/55 L 03/16/23 11:24 Pulse Oximetry 99 03/16/23 11:24 Oxygen Delivery Method Room Air 03/16/23 11:24 GENERAL: Alert pleasant well-appearing 73 year female and in [no acute] distress. HEENT: Head atraumatic,EOMI, pupils reactive, face symmetric, [moist] mucous membranes Neck supple without meningeal signs CARDIOVASCULAR: Regular rate and rhythm without murmurs, rubs or gallops. RESPIRATORY: Breath sounds equal bilaterally, no wheezes rales or rhonchi. ABDOMEN: Soft, nontender. Normoactive bowel sounds all 4 quadrants. No guarding or rebound. EXTREMITIES: Normal range of motion, no clubbing or edema. Neurovascularly intact NEUROLOGICAL: Alert and oriented x4.Normal gait and speech. SKIN: Warm, dry, no laceration, no petechiae, no rashes or lesions. Course Orders Ordered: ED Orders 03/16/23 11:31 EKG-12 Lead Stat 03/16/23 11:33 Covid-19 + FLU A/B + RSV - PCR Stat 03/16/23 13:05 CBC Auto Diff [Complete Blood Count AUTO DIFF] Stat CMP [Comprehensive Metabolic Panel] Stat Lactate (Lactic Acid) Stat Procalcitonin Stat Discontinued Medications Sodium Chloride (Normal Saline 0.9%) 1,000 mls @ 1,000 mls/hr IV BOLUS ONE Stop: 03/16/23 13:55 Last Admin: 03/16/23 13:01 Dose: 1,000 mls/hr Documented By: SERAFIN Vital Signs Vital signs: Vital Signs - 8 hr 03/16/23 11:24 03/16/23 12:58 03/16/23 13:00 Temperature 100.0 F H Pulse Rate 94 H 79 Pulse Rate [Orthostatic Lying] 78 Pulse Rate [Orthostatic Sitting] 81 Pulse Rate [Orthostatic Standing] 83 Respiratory Rate 14 Blood Pressure 109/55 L Blood Pressure [Orthostatic Lying] 106/62 Blood Pressure [Orthostatic Sitting] 90/52 L Blood Pressure [Orthostatic Standing] 82/51 L Pulse Oximetry 99 97 Oxygen Delivery Method Room Air 03/16/23 13:00 03/16/23 13:00 03/16/23 13:30 Temperature Pulse Rate 78 Pulse Rate [Orthostatic Lying] Pulse Rate [Orthostatic Sitting] Pulse Rate [Orthostatic Standing] Respiratory Rate Blood Pressure 108/64 113/61 Blood Pressure [Orthostatic Lying] Blood Pressure [Orthostatic Sitting] Blood Pressure [Orthostatic Standing] Pulse Oximetry 97 Oxygen Delivery Method 03/16/23 13:30 03/16/23 14:00 03/16/23 14:00 Temperature Pulse Rate 74 76 Pulse Rate [Orthostatic Lying] Pulse Rate [Orthostatic Sitting] Pulse Rate [Orthostatic Standing] Respiratory Rate 20 20 Blood Pressure 108/55 L Blood Pressure [Orthostatic Lying] Blood Pressure [Orthostatic Sitting] Blood Pressure [Orthostatic Standing] Pulse Oximetry 97 97 Oxygen Delivery Method 03/16/23 14:30 03/16/23 14:30 Temperature Pulse Rate 83 Pulse Rate [Orthostatic Lying] Pulse Rate [Orthostatic Sitting] Pulse Rate [Orthostatic Standing] Respiratory Rate 29 H Blood Pressure 109/60 Blood Pressure [Orthostatic Lying] Blood Pressure [Orthostatic Sitting] Blood Pressure [Orthostatic Standing] Pulse Oximetry 97 Oxygen Delivery Method MDM - Headache Lab Data 03/16/23 13:05 03/16/23 13:05 Labs: Lab Results 03/16/23 03/16/23 Range/Units 11:33 13:05 WBC 5.4 (4.5-11.0) X10^3/uL RBC 4.97 (4.0-5.2) X10^6/uL Hgb 14.7 (12.0-16.0) g/dL Hct 41.5 (36-46) % MCV 83.5 (80-100) fL MCH 29.7 (26-34) PG MCHC 35.5 (30-36) % RDW 13.4 (11.6-14.8) % Plt Count 201 (150-400) X10^3/uL Neut % (Auto) 90.2 H (50-75) % Lymph % (Auto) 2.0 L (25-40) % Sheridan % (Auto) 7.5 (3-14) % Eos % (Auto) 0.1 L (2-4) % Baso % (Auto) 0.2 (0-2) % Neut # (Auto) 4800 (2519-9360) /uL Lymph # (Auto) 100 L (9772-9527) /uL Sheridan # (Auto) 400 (0-900) /uL Eos # (Auto) 0 (0-450) /uL Baso # (Auto) 0 (0-100) /uL Sodium 136 L (137-145) mmol/L Potassium 3.3 L (3.4-5.1) mmol/L Chloride 104 (98-107) mmol/L Carbon Dioxide 24 (22-32) mmol/L BUN 19 H (7-17) mg/dL Creatinine 0.75 (0.52-1.04) mg/dL Estimated GFR > 60 (>60) mL/min BUN/Creatinine Ratio 25.3 H (6-22) Glucose 119 H (80-110) mg/dL Lactate 1.1 (0.7-2.1) mmol/L Calcium 9.1 (8.4-10.2) mg/dL Total Bilirubin 1.1 (0.2-1.3) mg/dL AST 45 H (14-36) IU/L ALT 27 (<35) IU/L Alkaline Phosphatase 60 (38-126) U/L Total Protein 7.1 (6.3-8.2) g/dL Albumin 4.1 (3.5-5.0) g/dL Globulin 3.0 (1.7-4.1) g/dL Albumin/Globulin Ratio 1.4 (1.0-2.8) Procalcitonin 0.08 (<0.5) ng/mL SARS-CoV-2 (PCR) Positive H (Negative) Influenza A (RT-PCR) Flu a negative (NEGATIVE) Influenza B (RT-PCR) Flu b negative (NEGATIVE) RSV (PCR) Negative (Negative) MDM Narrative Medical decision making narrative: Patient 73-year-old female hypertension hyperlipidemia started having symptoms of headache and fever. She tested positive for COVID-19. Initially blood pressure 106/62 without tachycardia. However with was rechecked she would positive orthostatics blood pressure going as low as 82/51. She received 1 L of IV fluids. Blood pressure improved 109/60. She overall feeling better. No need for admission she is not hypoxic. Blood work has been reviewed no leukocytosis GUERRERO, potassium slightly low at 3.3 Discharge Plan Departure Patient Disposition: Home Clinical Impression: COVID-19 Instructions: COVID-19 Activity Restrictions/Additional Instructions: *You have been diagnosed with COVID-19 *What to do: At this time stay hydrated rest as needed. Monitor oxygen intermittently make sure it is greater than 90%. *Continue to take medications as directed *Follow up with your primary care provider in 2-3 days or call [phone] *Return to ER if you should have increased shortness of breath oxygen less than 90% not drinking increased confusion or weakness or any new, worsening or concerning symptoms Prescriptions: No Action lisinopril 20 MG tablet 10 mg PO QDAY Qty: 0 amlodipine 5 mg Tablet 5 mg PO DAILY atenolol 50 mg tablet 50 mg PO DAILY rosuvastatin 5 mg Capsule, Sprinkle 5 mg PO DAILY Referrals: Mame Mariano MD [Primary Care Provider] - Stand Alone Forms: Patient Portal/API
[2023-03-16 14:30] VITALS: BP 109/60; PULSE 83; RESP 29; O2SAT 97
== END 2023-03-16 14:55 | disposition home or self-care (01) ==
PROVIDERS: Family Medicine; Emergency Provider Emergency Medicine; PCP Internal Medicine
DX: U07.1 COVID-19 (principal); I10 Essential (primary) hypertension; E78.5 Hyperlipidemia, unspecified
CPT/HCPCS: 0241U; 36415; 80053; 83605; 84145; 85025; 93005; 93010; 96360; 99284

== ENCOUNTER → 2023-06-22 09:43 | Outpatient (CLI) | payer MEDICARE, OTHER, SELFPAY ==
--- NOTE | 2023-06-22 09:45 | DI.MG.S_ITS ---
BILATERAL DIGITAL SCREENING MAMMOGRAM 3D/2D WITH CAD: 06/22/2023 CLINICAL: Routine screening. Comparison is made to exams dated: 06/14/2022 mammogram, 05/16/2021 mammogram, and 05/14/2020 mammogram - [facility]. Both breasts are heterogeneously dense, which may obscure small masses (category c / 51-75% glandular tissue). Current study was also evaluated with a Computer Aided Detection (CAD) system. No significant masses, calcifications, or other findings are seen in either breast. There has been no significant interval change. IMPRESSION: NEGATIVE There is no mammographic evidence of malignancy. A 1 year screening mammogram is recommended. Based on the Tyrer Cuzick model (a risk assessment model) the patient's lifetime risk is 5.4% and her 10 year risk is 5.4%. According to the ACR, ACS, and NCCN guidelines, an annual breast MRI exam along with mammogram is recommended if the patient's lifetime risk is 20% or greater. This exam was interpreted at Station ID: [id number]. NOTE: For mammograms, a report in lay terms will be sent to the patient. Approximately 15% of breast malignancies will not be visualized mammographically. In the management of a palpable breast mass, a negative mammogram must not discourage biopsy of a clinically suspicious lesion. Electronically Signed By: Denise brice/graham:06/22/2023 16:46:00 letter sent: Normal Exam ACR BI-RADS Category 1: Negative 3341F
== END ==
LOC: MAMMO 09:44
PROVIDERS: PCP Internal Medicine; Referring Provider Internal Medicine; Visit Provider Internal Medicine
DX: Z12.31 Encounter for screening mammogram for malignant neoplasm of breast (principal); R92.333 Mammographic heterogeneous density, bilateral breasts
CPT/HCPCS: 77063; 77067

== ENCOUNTER → 2024-06-24 08:10 | Outpatient (CLI) | payer MEDICARE, OTHER, SELFPAY ==
--- NOTE | 2024-06-24 08:11 | DI.MG.S_ITS ---
MM screening mammo BI: 06/24/2024. BI-RADS: 1 CLINICAL: 74-year old female for bilateral screening mammogram. Tyrer-Cuzick lifetime risk of 1.5%. No personal or first-degree family history of breast cancer. The patient had a prior left breast biopsy. PRIOR EXAMS 06/22/2023, 06/14/2022, 05/16/2021, 05/14/2020, 05/09/2019, 05/08/2018, 04/27/2017, 09/22/2016, 04/19/2016, 04/06/2016, 03/31/2015. MAMMOGRAPHY TECHNIQUE: 2D and 3D (tomosynthesis) digital mammographic views obtained, with additional images as needed for full coverage. Current study was also evaluated with a Computer Aided Detection (CAD) system. DENSITY C. The breasts are heterogeneously dense, which may obscure small masses. MAMMOGRAPHY FINDINGS Bilateral: No suspicious mass, asymmetry, microcalcification, or other abnormality seen. No significant change from comparison. IMPRESSION: * No evidence of malignancy. RECOMMENDATIONS Bilateral * Annual screening mammography. OVERALL ASSESSMENT CATEGORY BI-RADS-1: Negative. The [employer] recommends annual screening mammography beginning at age 40 for women with average risk of breast cancer. ELECTRONICALLY SIGNED: Charmaine Dai M.D. on 06/24/2024 at 12:46:42 PM PT Interpreting Station ID: [id number]
== END ==
PROVIDERS: PCP Internal Medicine; Referring Provider Internal Medicine; Visit Provider Internal Medicine
DX: Z12.31 Encounter for screening mammogram for malignant neoplasm of breast (principal); R92.333 Mammographic heterogeneous density, bilateral breasts
CPT/HCPCS: 77063; 77067

== ENCOUNTER → 2024-08-01 09:41 | Outpatient (CLI) | payer MEDICARE, OTHER, SELFPAY ==
--- NOTE | 2024-08-01 09:42 | DI.RAD.S_ITS ---
PROCEDURE: XR DEXA AXIAL SKELETON INDICATIONS: SCREENING FOR OSTEOPOROSIS COMPARISON: [facility], CR, XR DEXA AXIAL SKELETON, 06/28/2022, 10:00. FINDINGS: Lumbar Spine: Bone mineral density 0.544 g/cm2, T score -4.6. There is interval 4.4% increase in total lumbar spine bone mineral density. Left Femoral Neck: Bone mineral density 0.356 g/cm2, T score -4.4. There is interval 10.5% decrease in left femoral neck bone mineral density. Left Hip: Bone mineral density 0.467 g/cm2, T score -3.9. There is interval 4.6% decrease in left total hip bone mineral density. Fracture Risk Calculation (when applicable): 10-year fracture risk of a major osteoporotic fracture 36 percent and of a hip fracture 22 percent. (T score greater or equal to -1.0 to: NORMAL) (T score from -1.1 to -2.4: OSTEOPENIA) (T score less than or equal to -2.5: OSTEOPOROSIS) IMPRESSION: Osteoporosis. Follow-up guidelines as follows: Osteoporosis: Consider a repeat DEXA and Vertebral Fracture Assessment (VFA) exam in 2 years or sooner if medically necessary, to reassess this patient's status. Osteopenia: Consider a repeat DEXA in 2-3 years to reassess this patient's status, or if there is a new clinical indication. Normal: Consider a repeat DEXA in 5 years or sooner, or if there is a new clinical indication. All treatment decisions require clinical judgment and consideration of individual patient factors, including patient preferences, comorbidities, previous drug use, risk factors not captured in the FRAX model (e.g., frailty, falls, vitamin D deficiency, increased bone turnover, interval significant decline in bone density ) and possible under- or over-estimation of fracture risk by FRAX. In addition, the NOF Guide recommends that FDA-approved medical therapies be considered in postmenopausal women and men age >= 50 years with a: * Hip or vertebral (clinical or morphometric) fracture * T-score of <=-2.5 at the spine or hip * Ten-year fracture probability by FRAX of >= 3% for hip fracture or >=20% for major osteoporotic fracture. Dictated by: Momo Roberts M.D. on 08/01/2024 at 17:15 Approved by: Momo Roberts M.D. on 08/01/2024 at 17:18
== END ==
PROVIDERS: PCP Internal Medicine; Referring Provider Internal Medicine; Visit Provider Internal Medicine
DX: M81.0 Age-related osteoporosis without current pathological fracture (principal)
CPT/HCPCS: 77080

== ENCOUNTER 2025-03-02 15:01 | Emergency (ER) | payer MEDICARE, OTHER, SELFPAY ==
[2025-03-02] VITALS (10 sets, daily range): BP systolic 126–159; BP diastolic 73–91; PULSE 63–76; RESP 16; TEMP 36.7; O2SAT 95–98
--- NOTE | 2025-03-02 15:29 | ED.FEMALEGU ---
HPI - Female Genitourinary General Chief complaint: Urogenital-Female Stated complaint: weakness / nausea Time Seen by Provider: 03/02/25 15:28 History of Present Illness HPI Narrative: 75-year-old female patient with a history of hypertension and dyslipidemia who complains of sudden onset left flank pain with radiation to the left lower quadrant at around noon today along with nausea but no vomiting. Chills but no fever. No history of kidney stone or kidney infection. Related Data Home Medications ?Medication ?Instructions ?Recorded ?Confirmed lisinopril 20 mg tablet 10 mg PO QDAY ##0 10/06/16 06/05/22 amlodipine 5 mg tablet 5 mg PO DAILY 06/05/22 06/05/22 atenolol 50 mg tablet 50 mg PO DAILY 06/05/22 06/05/22 rosuvastatin 5 mg sprinkle capsule 5 mg PO DAILY 06/05/22 06/05/22 Previous Rx's ?Medication ?Instructions ?Recorded hydrocodone 5 mg-acetaminophen 325 1 tab PO Q4-6H PRN pain #10 tabs 03/02/25 mg tablet tamsulosin 0.4 mg capsule (Flomax) 0.4 mg PO DAILY 4 days #4 caps 03/02/25 Allergies Allergy/AdvReac Type Severity Reaction Status Date / Time No Known Drug Allergies Allergy Verified 03/16/23 11:24 Patient History Medical History Osteoporosis Hypertension Exam Narrative Exam Narrative: General: Alert and conversant. [id number] distress. Appears well nourished and well hydrated Lungs: Clear to auscultation with good air movement. No wheezing, rales or rhonchi. No respiratory distress Cardiac: Regular rate and rhythm with no appreciable murmur or gallop Abdomen: Soft, nontender with no distention or masses. Normal bowel sounds. No rebound or guarding. Positive left CVA tenderness. Musculoskeletal: Exam of the extremities, axial spine and ribcage reveals no deformity, bony tenderness or swelling. Range of motion intact Neuro: Alert and oriented. Cranial nerves, motor, sensory and cerebellar all grossly intact. No focal deficit Skin: Warm and normal color. No rashes Psychological: Normal affect and interaction. No evidence of delusion or psychosis. Normal mood. Initial Vital Signs Initial Vital Signs: Vital Signs Temperature 98.1 F 03/02/25 15:25 Pulse Rate 76 03/02/25 15:25 Respiratory Rate 16 03/02/25 15:25 Blood Pressure 152/91 H 03/02/25 15:25 Pulse Oximetry 98 03/02/25 15:25 Oxygen Delivery Method Room Air 03/02/25 15:25 Course Orders Ordered: ED Orders 03/02/25 16:15 Urinalysis and Microscopic Stat Urine Culture Stat 03/02/25 16:31 CBC Auto Diff [Complete Blood Count AUTO DIFF] Stat CMP [Comprehensive Metabolic Panel] Stat 03/02/25 18:37 CT abdomen pelvis wo con Stat Discontinued Medications Hydrocodone Bitart/Acetaminophen (Hydrocodone/Acet 5/325 Prepack) 1 bottle MISC DIRECTED ONE Stop: 03/02/25 20:04 Ceftriaxone Sodium 1,000 mg/ (Sodium Chloride) 100 mls @ 200 mls/hr IV NOW ONE Stop: 03/02/25 18:40 Last Admin: 03/02/25 19:25 Dose: 200 mls/hr Documented By: ROSI Ketorolac Tromethamine (Ketorolac 30 Mg/Ml Vial) 15 mg IV NOW ONE Stop: 03/02/25 15:33 Last Admin: 03/02/25 19:25 Dose: 15 mg Documented By: ROSI Morphine Sulfate (Morphine 4 Mg/Ml Inj) 4 mg IV NOW ONE Stop: 03/02/25 15:33 Ondansetron HCl (Ondansetron 4 Mg/2 Ml Inj) 4 mg IV NOW ONE Stop: 03/02/25 15:33 Tamsulosin HCl (Tamsulosin 0.4 Mg Capsule) 0.4 mg PO NOW ONE Stop: 03/02/25 20:04 Vital Signs Vital signs: Vital Signs - 8 hr 03/02/25 15:25 03/02/25 17:25 03/02/25 17:25 Temperature 98.1 F Pulse Rate 76 71 Respiratory Rate 16 Blood Pressure 152/91 H 127/74 Pulse Oximetry 98 96 Oxygen Delivery Method Room Air 03/02/25 17:30 03/02/25 17:30 03/02/25 17:55 Temperature Pulse Rate 63 Respiratory Rate Blood Pressure 132/76 139/75 Pulse Oximetry 95 Oxygen Delivery Method 03/02/25 17:55 03/02/25 18:00 03/02/25 18:00 Temperature Pulse Rate 70 69 Respiratory Rate 16 Blood Pressure 126/73 Pulse Oximetry 97 97 Oxygen Delivery Method 03/02/25 18:30 03/02/25 18:30 03/02/25 18:50 Temperature Pulse Rate 63 75 Respiratory Rate Blood Pressure 141/77 H Pulse Oximetry 97 97 Oxygen Delivery Method 03/02/25 18:50 03/02/25 19:00 03/02/25 19:00 Temperature Pulse Rate 64 Respiratory Rate Blood Pressure 159/89 H 135/84 Pulse Oximetry 97 Oxygen Delivery Method 03/02/25 19:30 03/02/25 19:30 03/02/25 20:00 Temperature Pulse Rate 65 64 Respiratory Rate Blood Pressure 138/82 Pulse Oximetry 96 97 Oxygen Delivery Method 03/02/25 20:00 Temperature Pulse Rate Respiratory Rate Blood Pressure 132/82 Pulse Oximetry Oxygen Delivery Method MDM - Female Genitourinary Medical Records Attestation: I reviewed the patient's medical records. Lab Data Attestation: I reviewed the patient's lab results. 03/02/25 16:31 03/02/25 16:31 Labs: Lab Results 03/02/25 03/02/25 Range/Units 16:15 16:31 WBC 6.0 (4.5-11.0) X10^3/uL RBC 4.67 (4.0-5.2) X10^6/uL Hgb 13.9 (12.0-16.0) g/dL Hct 39.1 (36-46) % MCV 83.8 (80-100) fL MCH 29.8 (26-34) PG MCHC 35.5 (30-36) % RDW 13.9 (11.6-14.8) % Plt Count 222 (150-400) X10^3/uL Neut % (Auto) 80.4 H (50-75) % Lymph % (Auto) 11.4 L (25-40) % [place]herty % (Auto) 5.6 (3-14) % Eos % (Auto) 2.2 (2-4) % Baso % (Auto) 0.4 (0-2) % Neut # (Auto) 4800 (0320-3295) /uL Lymph # (Auto) 700 L (8557-6908) /uL Dougherty # (Auto) 300 (0-900) /uL Eos # (Auto) 100 (0-450) /uL Baso # (Auto) 0 (0-100) /uL Sodium 138 (137-145) mmol/L Potassium 3.9 (3.4-5.1) mmol/L Chloride 106 (98-107) mmol/L Carbon Dioxide 24 (22-32) mmol/L BUN 26 H (7-17) mg/dL Creatinine 1.00 (0.52-1.04) mg/dL Estimated GFR 58 L (>60) mL/min BUN/Creatinine Ratio 26.0 H (6-22) Glucose 112 H (70-99) mg/dL Calcium 8.9 (8.4-10.2) mg/dL Total Bilirubin 0.5 (0.2-1.3) mg/dL AST 22 (14-36) IU/L ALT 14 (<35) IU/L Alkaline Phosphatase 63 (38-126) U/L Total Protein 6.7 (6.3-8.2) g/dL Albumin 3.9 (3.5-5.0) g/dL Globulin 2.8 (1.7-4.1) g/dL Albumin/Globulin Ratio 1.4 (1.0-2.8) Urine Color Yellow Urine Appearance Clear Urine pH 6.0 (4.5-8.0) Ur Specific [place] 1.025 (1.000-1.035) Urine Protein Trace H (Negative) Urine Glucose (UA) Negative (Negative) g/dL Urine Ketones Trace H (NEGATIVE) Urine Occult Blood 1+ H (Negative) Urine Nitrate Negative (Negative) Urine Bilirubin Negative (NEGATIVE) Urine Urobilinogen 0.2 (0.2) E.U./dL Ur Leukocyte Esterase Negative (NEGATIVE) Urine RBC 10-30/hpf H (0-5/HPF) Urine WBC 5-10/hpf H (0-5/HPF) Ur Squamous Epith Cells None seen (0-5/HPF) Ur Renal Epithelial Cell 0-1/hpf (0-1/HPF) Urine Bacteria Few (2-10) H (None) Hyaline Casts 1-5/lpf (None) Granular Casts 1-5/lpf (None) Ur Culture Indicated? Specimen cultured Vol Urine Centrifuged 10ml (spun) Imaging Data CT scan - abdomen/pelvis: Radiologist's Impression: IMPRESSION: Mild left hydronephrosis, hydroureter with distal left ureterovesical junction calculus. Nonobstructing right renal calculus. Cholecystectomy with dilated common bile duct and mild intrahepatic biliary ductal dilatation as discussed above. Moderate pericardial effusion. Mild cardiomegaly. Other findings as above. MDM Narrative Medical decision making narrative: Patient has a 3 mm left UVJ stone with mild hydronephrosis. Still may have passed by now but at any rate she may be managed at home with hydration, pain medication and straining her urine to retrieve the stone. She is given a take-home pack of hydrocodone and materials to collect urine. Also given the name of Urology in case she is not improving in the next 2-3 days. Return to the ER if worse. Discharge Plan Departure Patient Disposition: Home Clinical Impression: Kidney stone on left side, Renal colic on left side Instructions: DI for Kidney Stones Activity Restrictions/Additional Instructions: Plan: Hydration and supportive care. Ibuprofen and hydrocodone for pain. Strain urine to retrieve stone. Prescription for Flomax. Follow up with Urology if not improving in 2-3 days. Prescriptions: New hydrocodone-acetaminophen 5-325 mg tablet 1 tab PO Q4-6H PRN (Reason: pain) Qty: 10 0RF tamsulosin [Flomax] 0.4 mg capsule 0.4 mg PO DAILY 4 Days Qty: 4 0RF No Action lisinopril 20 MG tablet 10 mg PO QDAY Qty: 0 amlodipine 5 mg Tablet 5 mg PO DAILY atenolol 50 mg tablet 50 mg PO DAILY rosuvastatin 5 mg Capsule, Sprinkle 5 mg PO DAILY Referrals: Jose Liao DO [Physician, Urology] Referral Note: Follow up in 2-3 days if not improving Clinical Impression: Kidney stone on left side Mame Mariano MD [Primary Care Provider, Internal Medicine] Stand Alone Forms: Patient Portal/API
[2025-03-02 16:37] LABS: Appearance Urine UA CLEAR; Bilirubin Urine UA NEGATIVE (NEGATIVE); Color Urine UA YELLOW; Glucose Urine UA NEGATIVE (Negative); Ketones Urine UA TRACE (NEGATIVE); Leukocyte Esterase Urine UA NEGATIVE (NEGATIVE); Nitrite Urine UA NEGATIVE (Negative); Occult Blood Urine UA 1+ (Negative); Protein Urine UA TRACE (Negative); Specific Gravity Urine UA 1.025 (1.000-1.035); Urobilinogen Urine UA 0.2 E.U./dL (0.2)
[2025-03-02 16:44] LABS: pH Urine UA 6.0 (4.5-8.0)
[2025-03-02 16:48] LABS: Alanine Aminotransferase 14 IU/L (<35); Albumin 3.9 g/dL (3.5-5.0); Albumin Globulin Ratio 1.4 (1.0-2.8); Alkaline Phosphatase 63 U/L (38-126); Blood Urea Nitrogen 26 mg/dL (7-17); Calcium 8.9 mg/dL (8.4-10.2); Carbon Dioxide 24 mmol/L (22-32); Chloride 106 mmol/L (98-107); Estimated Glomerular Filt Rate 58 mL/min (>60); Globulin 2.8 g/dL (1.7-4.1); Glucose 112 mg/dL (70-99); HEMOLYSIS < 15 (0-50); Potassium 3.9 mmol/L (3.4-5.1); Sodium 138 mmol/L (137-145); Total Protein 6.7 g/dL (6.3-8.2)
[2025-03-02 16:51] LABS: Culture Indicated Urine Specimen Cultured
[2025-03-02 16:54] LABS: Add Manual Diff / Slide Review NO; Hematocrit 39.1 % (36-46); Hemoglobin 13.9 g/dL (12.0-16.0); Lymphocytes Absolute Auto 700 /uL (1100-4500); Mean Corpuscular HGB Conc 35.5 % (30-36); Mean Corpuscular Hemoglobin 29.8 PG (26-34); Mean Corpuscular Volume 83.8 fL (80-100); Platelet Count 222 X10^3/uL (150-400)
--- NOTE | 2025-03-02 18:37 | DI.CT.S_ITS ---
PROCEDURE: CT ABDOMEN PELVIS WO CON INDICATIONS: Left renal colic TECHNIQUE: CT of the abdomen and pelvis was obtained without intravenous contrast. Coronal and sagittal reformats were performed. For radiation dose reduction, the following was used: automated exposure control, adjustment of mA and/or kV according to patient size. COMPARISON: None. FINDINGS: Image quality: Diagnostic. Lower Chest: Moderate pericardial effusion and or pericardial thickening measures up to 1.8 cm maximal depth anterior-inferiorly on the right. Mild cardiomegaly. Mild calcifications descending aorta. ABDOMEN: [id number] left hydronephrosis, hydroureter with a 3 mm diameter calculus at the left ureterovesical junction posterior aspect of the left side of the urinary bladder (series 2, image 126). 3 mm nonobstructing right renal calculus inferior pole. Otherwise the right kidney, right ureter within normal limits. Surgical clips status post cholecystectomy with dilated common bile duct measures up to 1.9 cm normally less than 1.0 cm post cholecystectomy with mild intrahepatic biliary ductal dilatation. Cannot exclude choledocholithiasis or other distal common bile duct or ampullary pattern of obstruction. Follow-up suggested. If indicated MRCP/ERCP could be performed. [id number] nonspecific wall thickening of the distal esophagus into the stomach, unchanged some of which may be artifact from partial nondistention although esophagitis, gastritis or other process could be considered. Mild nonspecific wall thickening distal rectum/anus commonly artifact from partial nondistention or related to proctitis, hemorrhoids or other anal rectal lesion. Moderate diverticulosis of the descending, sigmoid colon without CT evidence of diverticulitis. Pattern of constipation. Appendix is not definitively identified. Moderate degenerative changes bilateral hips. Osteopenia and moderate degenerative changes lower thoracic, lumbar spine most notably at L3-4. Moderate levoscoliosis. Liver: Unenhanced liver demonstrates suspected prominent Bernardo's lobe 17 cm in CC dimension of the right lobe otherwise within normal limits in size. No gross CT evidence of focal hepatic lesion. Pancreas: Normal Spleen: Normal. Adrenal Glands: No adrenal nodules. Peritoneum: No abnormal intraperitoneal fluid. No free air. Ventral Wall: No significant hernia. Abdominal Nodes: No retroperitoneal or mesenteric adenopathy by size criteria. Vessels: Aorta and inferior vena cava are normal in size. PELVIS: Pelvic Organs: Hysterectomy. Pelvic Nodes: No enlarged lymph nodes. Miscellaneous: No inguinal hernias are seen. IMPRESSION: Mild left hydronephrosis, hydroureter with distal left ureterovesical junction calculus. Nonobstructing right renal calculus. Cholecystectomy with dilated common bile duct and mild intrahepatic biliary ductal dilatation as discussed above. Moderate pericardial effusion. Mild cardiomegaly. Other findings as above. Follow-up suggested. Dictated by: Adonis Davies M.D. on 03/02/2025 at 18:57 Approved by: Adonis Davies M.D. on 03/02/2025 at 19:04
[2025-03-02] MEDS: KETOROLAC 30 MG/ML VIAL 15 MG IV (19:25)
== END 2025-03-02 20:27 | disposition home or self-care (01) ==
PROVIDERS: Emergency Provider Emergency Medicine; PCP Internal Medicine
DX: N13.2 Hydronephrosis with renal and ureteral calculous obstruction (principal)
CPT/HCPCS: 36415; 74176; 80053; 81001; 85025; 87086; 96374; 99284; J0696; J1885; J7050